=== PATIENT | female | born 1960 | race Caucasian/White ===

== ENCOUNTER 2019-08-31 17:36 | Emergency (ER) | payer BC, OTHER ==
[2019-08-31 17:54] VITALS: BP 145/88; PULSE 85
--- NOTE | 2019-08-31 18:42 | EDM.PDOC ---
ED HPI GENERAL MEDICAL PROBLEM - General Chief Complaint: General Stated Complaint: BREAST PAIN Time Seen by Provider: 08/31/19 18:14 Source of Information: Reports: Patient History Limitations: Reports: No Limitations - History of Present Illness INITIAL COMMENTS - FREE TEXT/NARRATIVE: patient is a 58-year-old female who presents with complaints of bilateral breast pain. She states this has been an ongoing problem for her "for years". She states that the symptoms will come and go This last episode has been going on for the last couple days. She states that she will get pain in her breast which radiates into her arm. She has no cardiac history and states that the pain is in the tissues of her breast and moves when she moves her breasts. She does not feel that the pain is in her chest wall or within her thoracic cavity. She states the pain is made worse by movement of her arm, specifically vacuuming.she states at times she will massages the tissue so hard that she has bruising on her breasts. She we will use hot baths to relieve the symptoms. She denies ever having a cyst removed, biopsied or having any ultrasounds done of the cysts. She has had routine mammograms which she states have been done at [place]; however, she is currently passed due for her yearly mammogram. She has never been told that there were any abnormalities in her mammograms or that they had any visible cysts. She does not use any [id number] medications for the pain, however she states that she will intermittently use heat. Denies any redness or warmth to the breast tissues. Denies any associated shortness of breath or diaphoresis. The patient is postmenopausal. States it's been years since she had a period. She feels like her hormones are "out of whack" and that this may be contributing to her ongoing breast symptoms. Onset: Other (ongoing "for years") Breast Pain Score (Numeric/FACES): 6 - Related Data Allergies Allergy/AdvReac Type Severity Reaction Status Date / Time No Known Allergies Allergy Verified 08/31/19 17:53 Home Meds: Home Meds Benazepril HCl [Lotensin] 40 mg PO DAILY 07/19/16 [History] Levothyroxine 50 mcg PO ACBREAKFAST 07/19/16 [History] Simvastatin [Zocor] 20 mg PO DAILY 12/13/16 [History] Potassium Citrate [Potassium Citrate ER] 10 meq PO DAILY 08/31/19 [History] Past Medical History Cardiovascular History: Reports: High Cholesterol, Hypertension Genitourinary History: Reports: Renal Calculus Endocrine/Metabolic History: Reports: Hypothyroidism - Past Surgical History Female Surgical History: Reports: Tubal Ligation Social & Family History - Tobacco Use Smoking Status *Q: Never Smoker Second Hand Smoke Exposure: No - Caffeine Use Caffeine Use: Reports: None - Recreational Drug Use Recreational Drug Use: No - Living Situation & Occupation Occupation: Employed ED ROS GENERAL - Review of Systems Review Of Systems: See Below Constitutional: Reports: No Symptoms. Denies: Fever, Chills HEENT: Reports: No Symptoms Respiratory: Reports: No Symptoms Cardiovascular: Denies: Chest Pain, Dyspnea on Exertion, Edema, Palpitations Endocrine: Reports: No Symptoms GI/Abdominal: Reports: No Symptoms : Reports: No Symptoms Musculoskeletal: Reports: No Symptoms Skin: Reports: Other (bilateral breast pain) Neurological: Reports: No Symptoms Psychiatric: Reports: No Symptoms Hematologic/Lymphatic: Reports: No Symptoms Immunologic: Reports: No Symptoms ED EXAM, GENERAL - Physical Exam Exam: See Below Exam Limited By: No Limitations General Appearance: Alert, WD/WN, No Apparent Distress Respiratory/Chest: No Respiratory Distress, Lungs Clear, Normal Breath Sounds, No Accessory Muscle Use, Chest Non-Tender Cardiovascular: Normal Peripheral Pulses, Regular Rate, Rhythm, No Edema, No Gallop, No JVD, No Murmur, No Rub Neurological: Alert, Oriented, CN II-XII Intact, Normal Cognition, Normal Gait, Normal Reflexes, No Motor/Sensory Deficits Psychiatric: Normal Affect, Normal Mood Skin Exam: Warm, Dry, Intact, Normal Color, No Rash, Other (small palpable nodule to the left breast in the 4'oclock position. Tender to palpation.) Course - Vital Signs Last Recorded V/S: Last Vital Signs Temp 98.6 F 08/31/19 17:51 Pulse 85 08/31/19 17:51 Resp 16 08/31/19 17:51 BP 145/88 H 08/31/19 17:51 Pulse Ox 96 08/31/19 17:51 - Orders/Labs/Meds Meds: Medications Discontinued Medications Generic Name Dose Route Start Last Admin Trade Name Freq PRN Reason Stop Dose Admin Ibuprofen 600 mg 08/31/19 18:57 08/31/19 19:05 Motrin PO 08/31/19 18:58 600 mg ONETIME ONE Administration - Re-Assessments/Exams Free Text/Narrative Re-Assessment/Exam: 08/31/19 18:49 On exam, there is a small, nodular area that is tender to palpation at the 4 o' clock position of the left breast. Patient states that she intermittently has these in both breasts but that currently it is her left breast that is causing the pain. The symptoms are not new. She states she has had them "for years". she has no associated cardiac symptoms. Do not feel this is cardiac in nature as the pain is reproducible by palpating the tissues of the breast. We discussed options she may use to relieve the pain. She was offered an injection of IM Toradol, however she declined this option as she does not like needles. I will give her ibuprofen 600 mg tonight. I did discuss with her that she should have a a mammogram completed and recommended that she establish care with an GLOBAL CATEGORY MANAGER provider. She states that she has tried to get in with Dr. Lindo, however she is "so hard to get into ". I discussed available providers and she requests to have a copy of this chart sent to Elena Bardales NP. She will call to schedule an appointment with her. discharge instructions as noted. Departure - Departure Time of Disposition: 18:53 Disposition: Home, Self-Care 01 Condition: Fair Clinical Impression: Chronic breast pain - Discharge Information *PRESCRIPTION DRUG MONITORING PROGRAM REVIEWED*: No *COPY OF PRESCRIPTION DRUG MONITORING REPORT IN PATIENT DREW: No Instructions: Fibrocystic Breast Changes, [id number] Referrals: Zain Field MD [Primary Care Provider] - Charline Bardales NP [Nurse Practitioner] - Forms: ED Department Discharge Additional Instructions: you were seen in the emergency department today with complaints of breast pain which she said has been an ongoing issue for you for years. I would recommend that he establish care with an GLOBAL CATEGORY MANAGER provider and have your yearly mammogram completed, as well as discuss options for further treatment of her breast cysts. A copy of this chart has been sent to Charline Bardales NP. I recommend that you call Monday morning to schedule an appointment with her. While in the ER, he did receive 600 mg of ibuprofen. You may continue to use this every 6 hours as needed for pain in your breasts. Ensure that she take this medication with food as it can be upsetting to her stomach. I wouldn't recommend that she use this every day, however you may use this for acute exacerbations of the pain. May continue to apply heat to the breast to help with the symptoms. If you should experience any new or worsening symptoms of concern, such as shortness of breath, palpitations, lightheadedness, or worsening pain, please don't hesitate to return to the emergency department. Sepsis Event Note - Evaluation Sepsis Screening Result: No Definite Risk - Focused Exam Date Exam was Performed: 09/02/19 Time Exam was Performed: 15:24
[2019-08-31] MEDS ORDERED: Ibuprofen 600 MG Tab PO ONE (18:57)
== END 2019-08-31 19:10 | disposition home or self-care (01) ==
LOC: JD.ED 17:36
DX: G89.29 Other chronic pain (principal); N64.4 Mastodynia; I10 Essential (primary) hypertension; E78.00 Pure hypercholesterolemia, unspecified; E03.9 Hypothyroidism, unspecified; Z79.899 Other long term (current) drug therapy
CPT/HCPCS: 99283; A9270; 99282

== ENCOUNTER 2020-12-25 11:16 | Emergency (ER) | payer BC ==
[2020-12-25] MEDS ORDERED: diphenhydrAMINE 50 MG/ML SDV IVPUSH PRN (12:00)
[2020-12-25] MEDS ORDERED: EPINEPHrine 1 MG/ML SDV IM PRN (12:00)
[2020-12-25] MEDS ORDERED: Famotidine 20 MG/2 ML SDV IVPUSH PRN (12:00)
[2020-12-25] MEDS ORDERED: Sodium Chloride 0.9% 10 ML Syringe FLUSH SCH (12:00)
[2020-12-25] MEDS ORDERED: methylPREDNISolone Sodium Succinate 125 MG/2 ML SDV IVPUSH PRN (12:00)
--- NOTE | 2020-12-25 12:06 | EDM.PDOC ---
ED HPI GENERAL MEDICAL PROBLEM - General Chief Complaint: Respiratory Problem Stated Complaint: VOMITING/COVID + Time Seen by Provider: 12/25/20 11:34 Source of Information: Reports: Patient, RN Notes Reviewed History Limitations: Reports: No Limitations - History of Present Illness INITIAL COMMENTS - FREE TEXT/NARRATIVE: Patient is a 60 year old female who presents to the ED for her ongoing COVID-19 symptoms. Patient notes she has had symptoms for over 2 weeks, and she was told that she would be off of her quarantine on December 23 however she is still symptomatic and feels quite unwell. She lives in the [facility], and her primary care resides there as well. Notes that she has had some nausea with a small amount of vomiting, she has had her loss of her sense of taste and smell, so she just does not really have much of an appetite, she states that she has been drinking Ensure shakes to try to keep her self sustained. She has had on and off body aches, chills where she takes quite a few warm baths on a daily basis. She is also complaining of headache and some diarrhea. Patient notes that she does have blood pressure issues, has had a history of kidney stones as well. She went to the walk-in clinic a few nights ago, and had a chest x-ray and labs taken and she states that she was told that these were all fine. She is wondering about receiving the "Trump" transfusion. Treatments CAMPAIGN ADVISOR: Reports: Other (see below) Other Treatments CAMPAIGN ADVISOR: none - Related Data Allergies Allergy/AdvReac Type Severity Reaction Status Date / Time No Known Allergies Allergy Verified 08/31/19 17:53 Home Meds: Home Meds Benazepril HCl [Lotensin] 40 mg PO DAILY 07/19/16 [History] Levothyroxine 50 mcg PO ACBREAKFAST 07/19/16 [History] Simvastatin [Zocor] 20 mg PO DAILY 07/19/16 [History] Potassium Citrate [Potassium Citrate ER] 10 meq PO DAILY 08/31/19 [History] Past Medical History Cardiovascular History: Reports: High Cholesterol, Hypertension Genitourinary History: Reports: Renal Calculus Endocrine/Metabolic History: Reports: Hypothyroidism, Obesity/BMI 30+ - Past Surgical History Female Surgical History: Reports: Tubal Ligation Social & Family History - Tobacco Use Tobacco Use Status *Q: Never Tobacco User - Caffeine Use Caffeine Use: Reports: None - Recreational Drug Use Recreational Drug Use: No - Living Situation & Occupation Occupation: Employed ED ROS GENERAL - Review of Systems Review Of Systems: Comprehensive ROS is negative, except as noted in HPI. ED EXAM, GENERAL - Physical Exam Exam: See Below Exam Limited By: No Limitations General Appearance: Alert, WD/WN, No Apparent Distress Respiratory/Chest: No Respiratory Distress, Lungs Clear, Normal Breath Sounds, No Accessory Muscle Use, Chest Non-Tender Cardiovascular: Normal Peripheral Pulses, Regular Rate, Rhythm, No Edema Peripheral Pulses: 2+: Radial (L), Radial (R) Extremities: Normal Inspection, Normal Capillary Refill Neurological: Alert, Oriented, Normal Cognition, No Motor/Sensory Deficits Psychiatric: Normal Affect, Normal Mood Skin Exam: Warm, Dry, Intact, Normal Color, No Rash Course - Vital Signs Last Recorded V/S: Last Vital Signs Temp 98.5 F 12/25/20 11:33 Pulse 69 12/25/20 13:30 Resp 16 12/25/20 13:30 BP 118/76 12/25/20 13:30 Pulse Ox 96 12/25/20 13:30 - Orders/Labs/Meds Orders: Active Orders 24 hr Category Date Time Status Vital Signs [RC] Q15M Care 12/25/20 12:00 Ordered EPINEPHrine [Adrenalin] Med 12/25/20 12:00 Active 0.3 mg IM ONETIME PRN Famotidine [Pepcid] Med 12/25/20 12:00 Active 20 mg IVPUSH ONETIME PRN Sodium Chloride 0.9% [Saline Flush] Med 12/25/20 12:00 Active 30 ml FLUSH ASDIRECTED diphenhydrAMINE [Benadryl] Med 12/25/20 12:00 Active 50 mg IVPUSH ONETIME PRN methylPREDNISolone Sod Succ [Solu-MEDROL] Med 12/25/20 12:00 Active 125 mg IVPUSH ONETIME PRN Medication Orders Diphenhydramine HCl (Diphenhydramine 50 Mg/Ml Sdv) 50 mg IVPUSH ONETIME PRN PRN Reason: hypersensitivity reaction Epinephrine HCl (Epinephrine 1 Mg/Ml Sdv) 0.3 mg IM ONETIME PRN PRN Reason: hypersensitivity reaction Famotidine (Famotidine 20 Mg/2 Ml Sdv) 20 mg IVPUSH ONETIME PRN PRN Reason: hypersensitivity reaction Methylprednisolone Sodium Succinate (Methylprednisolone Sodium Succinate 125 Mg/2 Ml Sdv) 125 mg IVPUSH ONETIME PRN PRN Reason: hypersensitivity reaction Sodium Chloride (Sodium Chloride 0.9% 10 Ml Syringe) 30 ml FLUSH ASDIRECTED [facility] Meds: Medications Generic Name Dose Route Start Last Admin Trade Name Freq PRN Reason Stop Dose Admin Diphenhydramine HCl 50 mg 12/25/20 12:00 Diphenhydramine 50 Mg/Ml Sdv IVPUSH ONETIME PRN hypersensitivity reaction Epinephrine HCl 0.3 mg 12/25/20 12:00 Epinephrine 1 Mg/Ml Sdv IM ONETIME PRN hypersensitivity reaction Famotidine 20 mg 12/25/20 12:00 Famotidine 20 Mg/2 Ml Sdv IVPUSH ONETIME PRN hypersensitivity reaction Methylprednisolone Sodium Succinate 125 mg 12/25/20 12:00 Methylprednisolone Sodium Succinate 125 Mg/2 Ml Sdv IVPUSH ONETIME PRN hypersensitivity reaction Sodium Chloride 30 ml 12/25/20 12:00 Sodium Chloride 0.9% 10 Ml Syringe FLUSH ASDIRECTED GERONIMO Discontinued Medications Generic Name Dose Route Start Last Admin Trade Name Freq PRN Reason Stop Dose Admin Bamlanivimab 700 mg/ 310 mls @ 310 mls/hr 12/25/20 12:00 12/25/20 12:49 Etesevimab 1,400 mg/ Sodium IV 12/25/20 12:59 310 mls/hr Chloride ONETIME ONE Administration - Re-Assessments/Exams Free Text/Narrative Re-Assessment/Exam: 12/25/20 12:06 Patient presents to the ER for evaluation of her COVID-19 symptoms, she notes that she did just have labs, chest x-ray done at the walk-in clinic a few nights ago, I would really rather not have to have this repeated again if possible. I have requested notes from the [place] walk-in clinic for review. This should be faxed over shortly. Patient notes that her symptoms have not necessarily worsened, they just have not gotten much better. She is not in any visible respiratory distress and O2 sats are 95% on room air. At this point in time, the patient does have hypertension, and is obese, and would be a candidate for bamlanivimab/etesevimab, and I spoke with the patient to provide information about bamlanivimab/etesevimab treatment. I offered them the "Patient and care administrative tech AJ bamlanivimab/etesevimab fact sheet" to read and review. I stated that the drug has been approved by an emergency use authorization (EUA) process and has not been fully FDA reviewed or approved. The patient meets the EUA requirements. I discussed there are other potential treatment options that are currently not FDA approved to treat COVID-19. I did offer an opportunity to ask questions and all questions were answered. The patient voiced understanding and agreed to proceed with the treatment. 12/25/20 12:20 Review of the patient's labs and visit from [facility] December 20, 2020, did demonstrate a positive Covid test, looks to be that she may have been symptomatic since the , but her positive test on the would necessarily put her in the range again for early outpatient monoclonal antibody therapy. This has been ordered and the patient be given this for management. CBC demonstrated a white count within normal limits, the patient's chest x-ray showed no sign of a Covid pneumonia, or other cardiopulmonary issues. 12/25/20 13:49 The patient has been checked on again, her monoclonal antibody therapy is just about completed. She will complete her 1 hour observation, and then will be discharged home. Departure - Departure Time of Disposition: 13:50 Disposition: Home, Self-Care 01 Condition: Good Clinical Impression: COVID-19 - Discharge Information *PRESCRIPTION DRUG MONITORING PROGRAM REVIEWED*: No *COPY OF PRESCRIPTION DRUG MONITORING REPORT IN PATIENT DREW: No Instructions: 10 Things You Can Do to Manage Your COVID-19 Symptoms at Home - [facility] [place] Referrals: Zain Field MD [Primary Care Provider] - Forms: ED Department Discharge Additional Instructions: You were seen in the ER today for ongoing and/or worsening respiratory symptoms. No laboratory evaluation or chest x-ray was done at today's visit, as you recently had [facility], these were reviewed and was found to be within normal limits, which warranted no further clinical investigation. You were given the monoclonal antibody therapy through IV. This should help lessen the symptoms of COVID-19, and hopefully get you feeling better sooner rather than later. Please try to increase your oral fluid intake, and eat multiple small meals throughout the day, to keep yourself healthy. You need to keep yourself nourished in order to fight off this disease. You can try a liquid diet like gatorade/powerade as well to get your electrolytes. You may take 500 mg Tylenol every hours 6 hours for pain/fever relief. Do not exceed 4000 mg Tylenol in a 24-hour time span. However, running a fever is your body's natural response to illness, and it allows the body to develop antibodies to disease, we are recommending trying to limit the use of Tylenol as much as possible to allow your body's natural immune response. If you have not already been doing so, recommend you obtain a pulse oximeter and monitor your oxygen levels at home, you should place the monitor on your finger, and sit in a calm, quiet position for a few minutes and then record the number that is on the screen. If this consistently below 90% on room air without movement, this would be cause for concern to come back to the hospital for further management of your COVID-19 disease. Sepsis Event Note (ED) - Evaluation Sepsis Screening Result: No Definite Risk - Focused Exam Vital Signs: Vital Signs Temp Pulse Resp BP Pulse Ox 12/25/20 13:30 69 16 118/76 96 12/25/20 13:15 70 16 113/75 96 12/25/20 13:00 71 16 113/76 95 12/25/20 11:33 98.5 F 88 20 129/80 95 - My Orders Last 24 Hours: My Active Orders 12/25/20 12:00 Vital Signs [RC] Q15M EPINEPHrine [Adrenalin] 0.3 mg IM ONETIME PRN Famotidine [Pepcid] 20 mg IVPUSH ONETIME PRN Sodium Chloride 0.9% [Saline Flush] 30 ml FLUSH ASDIRECTED diphenhydrAMINE [Benadryl] 50 mg IVPUSH ONETIME PRN methylPREDNISolone Sod Succ [Solu-MEDROL] 125 mg IVPUSH ONETIME PRN - Assessment/Plan Last 24 Hours: My Active Orders 12/25/20 12:00 Vital Signs [RC] Q15M EPINEPHrine [Adrenalin] 0.3 mg IM ONETIME PRN Famotidine [Pepcid] 20 mg IVPUSH ONETIME PRN Sodium Chloride 0.9% [Saline Flush] 30 ml FLUSH ASDIRECTED diphenhydrAMINE [Benadryl] 50 mg IVPUSH ONETIME PRN methylPREDNISolone Sod Succ [Solu-MEDROL] 125 mg IVPUSH ONETIME PRN
[2020-12-25 14:33] VITALS: BP 110/72; PULSE 71
== END 2020-12-25 14:50 | disposition home or self-care (01) ==
LOC: JD.ED 11:16
DX: U07.1 COVID-19 (principal); E78.00 Pure hypercholesterolemia, unspecified; I10 Essential (primary) hypertension; E03.9 Hypothyroidism, unspecified; E66.9 Obesity, unspecified; Z68.30 Body mass index [BMI] 30.0-30.9, adult; Z79.899 Other long term (current) drug therapy
CPT/HCPCS: 99283; J7050; M0245; Q0245; 99284

== ENCOUNTER 2022-10-11 08:34 | Emergency (ER) | payer BC ==
[2022-10-11 08:43] VITALS: PULSE 105
[2022-10-11] MEDS ORDERED: Sodium Chloride 0.9% 10 ML Syringe FLUSH PRN (09:00)
[2022-10-11 10:10] LABS: ESTIMATED GFR 51 mL/min (>60)
[2022-10-11 11:42] LABS: CORONAVIRUS COVID-19 NAA NEGATIVE (NEGATIVE)
[2022-10-11 12:23] VITALS: BP 128/70
== END 2022-10-11 12:20 | disposition home or self-care (01) ==
LOC: JD.ED 08:34
DX: J40 Bronchitis, not specified as acute or chronic (principal); E78.00 Pure hypercholesterolemia, unspecified; I10 Essential (primary) hypertension; E03.9 Hypothyroidism, unspecified; E66.9 Obesity, unspecified; Z68.37 Body mass index [BMI] 37.0-37.9, adult; Z79.899 Other long term (current) drug therapy; Z20.822 Contact with and (suspected) exposure to COVID-19
CPT/HCPCS: 0241U; 36415; 71045; 80053; 83735; 84484; 85025; 85379; 85610; 87651; 93005; 99285; J3490; 93010; 99284

== ENCOUNTER 2022-12-22 17:40 | Emergency (ER) | payer BC ==
[2022-12-22] MEDS ORDERED: Aspirin 81 MG Tab.Chew PO ONE (18:17)
[2022-12-22 18:27] LABS: BASOPHILS ABSOLUTE AUTO 0.02 K/mm3 (0.01-0.08); BASOPHILS PERCENT AUTO 0.2 % (0.1-1.2); EOSINOPHILS ABSOLUTE AUTO 0.13 K/mm3 (0.04-0.36); EOSINOPHILS PERCENT AUTO 1.5 (0.7-5.8); HEMATOCRIT 47.1 % (34.1-44.9); HEMOGLOBIN 15.6 gm/dl (11.2-15.7); IMMATURE GRAN ABSOLUTE AUTO 0.03 K/mm3 (0.00-0.10); IMMATURE GRAN PERCENT AUTO 0.3 % (<=1.0); LYMPHOCYTES PERCENT AUTO 39.1 % (19.3-51.7); MEAN CORPUSCULAR HEMOGLOBIN 29.4 pg (25.6-32.2); MEAN CORPUSCULAR HGB CONC 33.1 g/dl (32.2-35.5); MEAN CORPUSCULAR VOLUME 88.9 fl (79.4-94.8); MEAN PLATELET VOLUME 10.8 fl (9.4-12.3); MONOCYTES ABSOLUTE AUTO 0.81 K/mm3 (0.24-0.36); MONOCYTES PERCENT AUTO 9.1 % (4.7-12.5); NEUTROPHILS ABSOLUTE AUTO 4.46 K/mm3 (1.56-6.13); NEUTROPHILS PERCENT AUTO 49.8 % (34.0-71.1); PLATELET COUNT,PLT 256 K/mm3 (182-369); WHITE BLOOD CELL COUNT,WBC 8.95 K/mm3 (3.98-10.04)
[2022-12-22 18:40] LABS: ALANINE AMINOTRANSFERASE,ALT 29 U/L (14-59); ALKALINE PHOSPHATASE 67 U/L (46-116); ANION GAP 13.1 (5-15); ASPARTATE AMNIOTRANSFERASE,AST 21 U/L (15-37); BILIRUBIN TOTAL 0.6 mg/dL (0.2-1.0); BLOOD UREA NITROGEN,BUN 13 mg/dL (7-18); BUN/CREATININE RATIO 11.8 (14-18); CALCIUM 9.5 mg/dL (8.5-10.1); CARBON DIOXIDE,CO2 26 mEq/L (21-32); CHLORIDE,CL 104 mEq/L (98-107); CREATININE 1.1 mg/dL (0.55-1.02); ESTIMATED GFR 56 mL/min (>60); GLUCOSE RANDOM 86 mg/dL (70-99); LIPASE 158 U/L (73-393); POTASSIUM,K 4.1 mEq/L (3.5-5.1); PROTEIN TOTAL,TP 8.2 g/dl (6.4-8.2); SODIUM,NA 139 mEq/L (136-145)
[2022-12-22 18:55] LABS: TROPONIN I HIGH SENSITIVITY < 4 pg/mL (<=51)
[2022-12-22 20:45] VITALS: BP 152/73; PULSE 69
== END 2022-12-22 19:50 | disposition home or self-care (01) ==
LOC: JD.ED 17:40
DX: R07.89 Other chest pain (principal); I10 Essential (primary) hypertension; E78.00 Pure hypercholesterolemia, unspecified; E03.9 Hypothyroidism, unspecified; E66.9 Obesity, unspecified; Z68.38 Body mass index [BMI] 38.0-38.9, adult; Z79.899 Other long term (current) drug therapy
CPT/HCPCS: 36415; 71045; 80053; 83690; 84484; 85025; 93005; 99285; A9270; 93010; 99284

== ENCOUNTER 2024-03-18 06:51 | Emergency (ER) | payer BC ==
[2024-03-18 07:11] VITALS: PULSE 71
[2024-03-18 07:43] LABS: BASOPHILS PERCENT AUTO 0.1 % (0.0-1.0); EOSINOPHILS ABSOLUTE AUTO 0.1 K/mm3 (0.0-0.4); EOSINOPHILS PERCENT AUTO 1.6 % (0.0-6.0); HEMATOCRIT 44.9 % (37.0-47.0); HEMOGLOBIN 14.7 gm/dl (12.0-16.0); IMMATURE GRAN ABSOLUTE AUTO 0.01 K/mm3 (0.00-0.05); IMMATURE GRAN PERCENT AUTO 0.1 % (0.0-0.4); LYMPHOCYTES ABSOLUTE AUTO 2.9 K/mm3 (1.0-4.8); MEAN CORPUSCULAR HEMOGLOBIN 29.2 pg (28.0-32.0); MEAN CORPUSCULAR HGB CONC 32.7 g/dl (32.0-36.0); MEAN CORPUSCULAR VOLUME 89.1 fl (83.0-99.0); MEAN PLATELET VOLUME 10.3 fl (9.4-12.3); MONOCYTES ABSOLUTE AUTO 0.5 K/mm3 (0.0-0.8); MONOCYTES PERCENT AUTO 7.9 % (0.0-8.0); NEUTROPHILS ABSOLUTE AUTO 3.2 K/mm3 (1.8-7.7); NEUTROPHILS PERCENT AUTO 47.3 % (41.0-71.0); PLATELET COUNT,PLT 237 K/mm3 (150-400); RED BLOOD CELL COUNT 5.04 M/mm3 (4.10-5.30); WHITE BLOOD CELL COUNT,WBC 6.74 K/mm3 (3.9-11.3)
[2024-03-18 07:46] VITALS: BP 151/87
[2024-03-18 08:03] LABS: ALBUMIN 3.6 g/dl (3.4-5.0); ANION GAP 12.4 (5-15); BILIRUBIN TOTAL 0.7 mg/dL (0.2-1.0); C-REACTIVE PROTEIN 0.13 mg/dL (<0.30); CALCIUM 9.5 mg/dL (8.5-10.1); CREATININE 1.2 mg/dL (0.55-1.02); EST CRCL DRUG DOSING (CG) 40.9 mL/min; MAGNESIUM 1.9 mg/dL (1.8-2.4); POTASSIUM,K 4.4 mEq/L (3.5-5.1); PROTEIN TOTAL,TP 7.3 g/dl (6.4-8.2)
[2024-03-18 08:30] LABS: CORONAVIRUS COVID-19 NAA NEGATIVE (NEGATIVE); INFLUENZA A NAA NEGATIVE (NEGATIVE); RESPIRATORY SYNCYTIAL VIR NAA NEGATIVE (NEGATIVE)
[2024-03-18 09:06] LABS: APPEARANCE,URINE CLEAR (Clear); BILIRUBIN,URINE NEGATIVE (Negative); COLOR,URINE YELLOW (Yellow); GLUCOSE,URINE NEGATIVE (Negative); KETONES,URINE NEGATIVE (Negative); LEUKOCYTE ESTERASE,URINE 2+ (Negative); NITRITE,URINE POSITIVE (Negative); OCCULT BLOOD,URINE TRACE-INTACT (Negative); PROTEIN,URINE NEGATIVE (Negative); UROBILINOGEN,URINE 0.2 (0.2-1.0)
[2024-03-18 09:21] LABS: EPITHELIAL CELLS,URINE 0-5 /hpf (0-5); RBC,URINE 0-5 /hpf (0-5); WBC,URINE 20-30 /hpf (0-5)
[2024-03-18 09:22] LABS: BACTERIA,URINE MODERATE /hpf (FEW); MUCUS,URINE FEW /hpf (FEW)
[2024-03-18] MEDS: Levofloxacin 500 MG Tab PO ONE (10:23)
== END 2024-03-18 11:10 | disposition home or self-care (01) ==
LOC: JD.ED 06:51
DX: N30.00 Acute cystitis without hematuria (principal); I10 Essential (primary) hypertension; E78.00 Pure hypercholesterolemia, unspecified; E03.9 Hypothyroidism, unspecified; E66.9 Obesity, unspecified; Z79.899 Other long term (current) drug therapy; Z68.37 Body mass index [BMI] 37.0-37.9, adult
CPT/HCPCS: 0241U; 36415; 80053; 81001; 83735; 85025; 86140; 87086; 99284; A9270; 87088; 87186